=== PATIENT | male | born 1965 | race Caucasian/White ===

== ENCOUNTER 2023-01-01 06:15 | Emergency (ER) | payer OTHER ==
[2023-01-01] MEDS ORDERED: TENORMIN25 MG PO (07:50)
[2023-01-01] MEDS ORDERED: AMLODIPINE BESY10 MG PO (07:51)
[2023-01-01] MEDS ORDERED: TENORMIN100 MG PO (07:52)
[2023-01-01 09:30] VITALS: BP 118/78
== END 2023-01-01 09:48 | DRG 563 ==
LOC: ED 06:15
PROC: 2W3AX1Z Immobilization of Right Upper Arm using Splint (ICD-10-PCS; principal; 2023-01-01)
DX: S42.301A Unspecified fracture of shaft of humerus, right arm, initial encounter for closed fracture (principal); W06.XXXA Fall from bed, initial encounter; Y92.143 Cell of prison as the place of occurrence of the external cause